=== PATIENT | female | born 1990 | race African-American/Black ===

== ENCOUNTER 2020-10-19 15:53 | Inpatient (IN) ==
[2020-10-19] MEDS ORDERED: cefTRIAXone 1,000 MG in SODIUM CHLORIDE 0.9% 100 ML IV STA (18:42)
[2020-10-19] MEDS ORDERED: DEXAMETHASONE 4 MG/1 ML VIAL IV STA (18:42)
[2020-10-19] MEDS ORDERED: cefTRIAXone 1,000 MG VIAL ONE (19:08)
[2020-10-19 19:12] LABS: Basophils % 0.2 % (0.0-0.8); Eosinophils % 0.1 % (0.00-10.9); Hematocrit 41.4 VOL% (35.7-47.0); Hemoglobin 13.8 GM/DL (12.0-16.0); Immature Granulocytes % 0.4 %; Immature Granulocytes Absolute 0.03 #; Lymphocytes # 2.5 10*3/uL (1.4-4.0); Lymphocytes % 29.7 % (21.3-54.2); Mean Corpuscular HGB Conc 33.3 GM/DL (32-36); Mean Corpuscular Volume 74.9 FL (87-102); Mean Platelet Volume 10.7 FL (9.6-12.0); Monocytes % 4.5 % (1.7-12.7); Neutrophils % 65.1 % (38.7-73.9); Platelet Count 220 T/CUMM (130-400); Red Blood Count 5.53 MC/CUMM (3.8-5.5); Red Cell Distribution Width 18.9 % (9.3-17.3); White Blood Count 8.4 T/CUMM (4-12)
[2020-10-19] MEDS ORDERED: hydrALAZINE 20 MG/1 ML VIAL IV STA (19:13)
[2020-10-19 19:35] LABS: Band Neutrophils 1 % (0-10); Hypochromasia Slight; Lymphocytes 29 % (20-55); Segmented Neutrophils 65 % (50-85); Target Cells Few; Total Cells Counted 100
[2020-10-19 19:36] LABS: Anisocytosis Slight; Platelet Estimate Adequate
[2020-10-19 19:41] LABS: Bilirubin,Total 0.4 MG/DL (0.2-1.0); Calcium 9.1 MG/DL (8.5-10.1); Ferritin 70.3 ng/ml (8-252); Osmolality,Calculated 270.8 MOS/KG (273-304); Total Protein 7.3 G/DL (6.4-8.3)
[2020-10-19] MEDS ORDERED: ACETAMINOPHEN 500 MG TABLET PO STA (20:56)
[2020-10-19] MEDS ORDERED: DOCUSATE SODIUM 100 MG CAPSULE PO PRN (21:52)
[2020-10-19] MEDS ORDERED: DEXTROSE 50% 25 GM/50 ML VIAL IV PRN (21:52)
[2020-10-19] MEDS ORDERED: ONDANSETRON 4 MG/2 ML VIAL IV PRN (21:52)
[2020-10-19] MEDS ORDERED: GLUCAGON 1 MG VIAL IM PRN (21:52)
[2020-10-19] MEDS ORDERED: hydrALAZINE 20 MG/1 ML VIAL IV PRN (21:52)
[2020-10-19] MEDS ORDERED: ENOXAPARIN 40 MG/0.4 ML SYRINGE SUBCUT SCH (22:00)
[2020-10-19] MEDS ORDERED: IBUPROFEN 600 MG TABLET PO PRN (22:42)
[2020-10-19] MEDS: AZITHROMYCIN INJ 500 MG in SODIUM CHLORIDE 0.9% 250 ML IV SCH (22:59)
[2020-10-19] MEDS: FAMOTIDINE 20 MG TABLET PO SCH (22:59)
[2020-10-19] MEDS: ALBUTEROL INHALER 18 GM INH SCH (22:59)
[2020-10-20] MEDS: ALBUTEROL INHALER 18 GM INH SCH ×6 (03:19→22:31)
[2020-10-20 06:49] LABS: Basophils % 0.3 % (0.0-0.8); Hematocrit 41.8 VOL% (35.7-47.0); Hemoglobin 13.5 GM/DL (12.0-16.0); Immature Granulocytes % 0.3 %; Immature Granulocytes Absolute 0.01 #; Lymphocytes # 1.3 10*3/uL (1.4-4.0); Lymphocytes % 36.4 % (21.3-54.2); Mean Corpuscular HGB Conc 32.3 GM/DL (32-36); Mean Corpuscular Volume 76.1 FL (87-102); Mean Platelet Volume 10.8 FL (9.6-12.0); Monocytes % 6.3 % (1.7-12.7); Neutrophils % 56.7 % (38.7-73.9); Platelet Count 188 T/CUMM (130-400); Red Blood Count 5.49 MC/CUMM (3.8-5.5); Red Cell Distribution Width 18.1 % (9.3-17.3); White Blood Count 3.5 T/CUMM (4-12)
[2020-10-20 07:11] LABS: Calcium 8.7 MG/DL (8.5-10.1); Osmolality,Calculated 278.5 MOS/KG (273-304)
[2020-10-20 07:18] LABS: Band Neutrophils 2 % (0-10); Hypochromasia 1+; Lymphocytes 34 % (20-55); Microcytosis Slight; Platelet Estimate Adequate; Segmented Neutrophils 59 % (50-85); Total Cells Counted 100
[2020-10-20] MEDS: FAMOTIDINE 20 MG TABLET PO SCH ×2 (08:11→20:30)
[2020-10-20] MEDS: DEXAMETHASONE 10 MG/1 ML VIAL IV SCH (08:11)
[2020-10-20] MEDS: amLODIPine 10 MG TABLET PO SCH (08:11)
[2020-10-20] MEDS: MONTELUKAST 10 MG TABLET PO SCH (08:12)
[2020-10-20] MEDS: ASCORBIC ACID 500 MG TABLET PO SCH (08:12)
[2020-10-20] MEDS: CETIRIZINE 10 MG TABLET PO SCH (08:12)
[2020-10-20] MEDS: CHOLECALCIFEROL 1,000 UNIT TABLET PO SCH (08:12)
[2020-10-20] MEDS: ZINC SULFATE 220 MG CAPSULE PO SCH (08:54)
[2020-10-20] MEDS: HEPARIN 5,000 UNIT/1 ML VIAL SUBCUT SCH ×3 (09:39→20:30)
[2020-10-20] MEDS: THIAMINE 100 MG TABLET PO SCH (09:39)
[2020-10-20] MEDS ORDERED: ZALEPLON 5 MG CAPSULE PO PRN (16:38)
[2020-10-20] MEDS ORDERED: REMDESIVIR 200 MG in SODIUM CHLORIDE 0.9% 210 ML IV ONE (17:00)
[2020-10-20] MEDS: cefTRIAXone 2,000 MG in SODIUM CHLORIDE 0.9% 100 ML IV SCH (17:50)
[2020-10-20] MEDS: AZITHROMYCIN INJ 500 MG in SODIUM CHLORIDE 0.9% 250 ML IV SCH (22:31)
[2020-10-21] MEDS: HEPARIN 5,000 UNIT/1 ML VIAL SUBCUT SCH ×4 (03:29→21:01)
[2020-10-21] MEDS: ALBUTEROL INHALER 18 GM INH SCH ×6 (03:30→23:30)
[2020-10-21 06:17] LABS: Basophils % 0.1 % (0.0-0.8); Hematocrit 39.7 VOL% (35.7-47.0); Hemoglobin 13.3 GM/DL (12.0-16.0); Immature Granulocytes % 0.5 %; Immature Granulocytes Absolute 0.06 #; Lymphocytes # 2.1 10*3/uL (1.4-4.0); Lymphocytes % 16.7 % (21.3-54.2); Mean Corpuscular HGB Conc 33.5 GM/DL (32-36); Mean Corpuscular Volume 74.8 FL (87-102); Mean Platelet Volume 10.8 FL (9.6-12.0); Monocytes % 6.4 % (1.7-12.7); Neutrophils % 76.3 % (38.7-73.9); Platelet Count 223 T/CUMM (130-400); Red Blood Count 5.31 MC/CUMM (3.8-5.5); Red Cell Distribution Width 18.6 % (9.3-17.3); White Blood Count 12.7 T/CUMM (4-12)
[2020-10-21 06:57] LABS: Alanine Aminotransferase 19 U/L (13-56); Albumin 2.7 G/DL (3.4-5.0); Alkaline Phosphatase 28 U/L (45-117); Aspartate Amino Transferase 15 U/L (0-37); Bilirubin,Direct < 0.050 MG/DL (0.0-0.20); Bilirubin,Indirect 0.9 MG/DL (0.0-1.0); Blood Urea Nitrogen 11 MG/DL (7-18); Estimated Glom Filtration Rate 158 ML/MIN; Ferritin 81.6 ng/ml (8-252); Glucose 112 MG/DL (74-106); Osmolality,Calculated 276.5 MOS/KG (273-304)
[2020-10-21 07:03] LABS: Hypochromasia Slight; Lymphocytes 11 % (20-55); Platelet Estimate Adequate; Segmented Neutrophils 87 % (50-85); Total Cells Counted 100
[2020-10-21 07:04] LABS: Microcytosis Slight
[2020-10-21] MEDS: THIAMINE 100 MG TABLET PO SCH (09:47)
[2020-10-21] MEDS: amLODIPine 10 MG TABLET PO SCH (09:47)
[2020-10-21] MEDS: CETIRIZINE 10 MG TABLET PO SCH (09:47)
[2020-10-21] MEDS: ASCORBIC ACID 500 MG TABLET PO SCH (09:47)
[2020-10-21] MEDS: CHOLECALCIFEROL 1,000 UNIT TABLET PO SCH (09:47)
[2020-10-21] MEDS: MONTELUKAST 10 MG TABLET PO SCH (09:48)
[2020-10-21] MEDS: FAMOTIDINE 20 MG TABLET PO SCH ×2 (09:48→21:02)
[2020-10-21] MEDS: DEXAMETHASONE 10 MG/1 ML VIAL IV SCH (09:48)
[2020-10-21] MEDS: REMDESIVIR 100 MG in SODIUM CHLORIDE 0.9% 230 ML IV SCH (13:50)
[2020-10-22] MEDS: AZITHROMYCIN INJ 500 MG in SODIUM CHLORIDE 0.9% 250 ML IV SCH (02:53)
[2020-10-22] MEDS: ALBUTEROL INHALER 18 GM INH SCH ×6 (03:54→23:35)
[2020-10-22] MEDS: HEPARIN 5,000 UNIT/1 ML VIAL SUBCUT SCH ×4 (03:54→21:50)
[2020-10-22 05:11] LABS: Albumin 2.9 G/DL (3.4-5.0); Bilirubin,Total 0.4 MG/DL (0.2-1.0); Calcium 8.7 MG/DL (8.5-10.1); Total Protein 7.3 G/DL (6.4-8.3)
[2020-10-22 05:12] LABS: Basophils % 0.2 % (0.0-0.8); Hematocrit 39.9 VOL% (35.7-47.0); Hemoglobin 13.2 GM/DL (12.0-16.0); Immature Granulocytes % 0.9 %; Immature Granulocytes Absolute 0.11 #; Lymphocytes # 2.4 10*3/uL (1.4-4.0); Lymphocytes % 19.2 % (21.3-54.2); Mean Corpuscular HGB Conc 33.1 GM/DL (32-36); Mean Corpuscular Volume 74.6 FL (87-102); Mean Platelet Volume 11.3 FL (9.6-12.0); Monocytes % 5.1 % (1.7-12.7); NRBC # 0.02 10*3/uL; Neutrophils % 74.6 % (38.7-73.9); Platelet Count 242 T/CUMM (130-400); Red Blood Count 5.35 MC/CUMM (3.8-5.5); Red Cell Distribution Width 18.4 % (9.3-17.3); White Blood Count 12.6 T/CUMM (4-12)
[2020-10-22 06:06] LABS: Anisocytosis 1+; Platelet Estimate Normal
[2020-10-22 06:07] LABS: Target Cells Few
[2020-10-22] MEDS: cefTRIAXone 2,000 MG in SODIUM CHLORIDE 0.9% 100 ML IV SCH ×3 (07:26→17:07)
[2020-10-22] MEDS: FAMOTIDINE 20 MG TABLET PO SCH ×2 (08:49→21:50)
[2020-10-22] MEDS: amLODIPine 10 MG TABLET PO SCH (08:50)
[2020-10-22] MEDS: ZINC SULFATE 220 MG CAPSULE PO SCH (08:50)
[2020-10-22] MEDS: MONTELUKAST 10 MG TABLET PO SCH (08:50)
[2020-10-22] MEDS: ASCORBIC ACID 500 MG TABLET PO SCH (08:52)
[2020-10-22] MEDS: CETIRIZINE 10 MG TABLET PO SCH (08:53)
[2020-10-22] MEDS: DEXAMETHASONE 10 MG/1 ML VIAL IV SCH (08:53)
[2020-10-22] MEDS: THIAMINE 100 MG TABLET PO SCH (08:53)
[2020-10-22] MEDS: CHOLECALCIFEROL 1,000 UNIT TABLET PO SCH (08:53)
[2020-10-22] MEDS: REMDESIVIR 100 MG in SODIUM CHLORIDE 0.9% 230 ML IV SCH (10:49)
[2020-10-22] MEDS: IBUPROFEN 400 MG TABLET PO PRN (10:49)
[2020-10-23] MEDS: ACETAMINOPHEN 325 MG TABLET PO PRN (02:45)
[2020-10-23] MEDS: HEPARIN 5,000 UNIT/1 ML VIAL SUBCUT SCH ×4 (02:45→20:32)
[2020-10-23] MEDS: ALBUTEROL INHALER 18 GM INH SCH ×6 (02:45→23:28)
[2020-10-23] MEDS: AZITHROMYCIN INJ 500 MG in SODIUM CHLORIDE 0.9% 250 ML IV SCH ×2 (03:03→21:58)
[2020-10-23 07:08] LABS: Basophils # 0.1 10*3/uL (0.0-0.2); Basophils % 0.3 % (0.0-0.8); Hematocrit 40.8 VOL% (35.7-47.0); Hemoglobin 13.2 GM/DL (12.0-16.0); Immature Granulocytes Absolute 0.33 #; Lymphocytes # 3.7 10*3/uL (1.4-4.0); Lymphocytes % 21.9 % (21.3-54.2); Mean Corpuscular HGB Conc 32.4 GM/DL (32-36); Mean Corpuscular Volume 75.1 FL (87-102); Mean Platelet Volume 11.5 FL (9.6-12.0); Monocytes % 8.8 % (1.7-12.7); NRBC # 0.02 10*3/uL; Platelet Count 253 T/CUMM (130-400); Red Blood Count 5.43 MC/CUMM (3.8-5.5); Red Cell Distribution Width 18.8 % (9.3-17.3); White Blood Count 16.8 T/CUMM (4-12)
[2020-10-23 07:28] LABS: Calcium 8.9 MG/DL (8.5-10.1); Osmolality,Calculated 279.5 MOS/KG (273-304)
[2020-10-23 08:56] LABS: Anisocytosis 1+; Band Neutrophils 2 % (0-10); Lymphocytes 25 % (20-55); Metamyelocytes 2 %; Myelocytes 1 %; Platelet Estimate Normal; Segmented Neutrophils 61 % (50-85); Smudge Cells 1+; Target Cells Few; Total Cells Counted 100
[2020-10-23] MEDS: CHOLECALCIFEROL 1,000 UNIT TABLET PO SCH (09:22)
[2020-10-23] MEDS: amLODIPine 10 MG TABLET PO SCH (09:23)
[2020-10-23] MEDS: MONTELUKAST 10 MG TABLET PO SCH (09:23)
[2020-10-23] MEDS: FAMOTIDINE 20 MG TABLET PO SCH ×2 (09:23→20:32)
[2020-10-23] MEDS: ASCORBIC ACID 500 MG TABLET PO SCH (09:23)
[2020-10-23] MEDS: CETIRIZINE 10 MG TABLET PO SCH (09:24)
[2020-10-23] MEDS: IBUPROFEN 400 MG TABLET PO PRN (09:24)
[2020-10-23] MEDS: THIAMINE 100 MG TABLET PO SCH (09:24)
[2020-10-23] MEDS: DEXAMETHASONE 10 MG/1 ML VIAL IV SCH (09:25)
[2020-10-23] MEDS: REMDESIVIR 100 MG in SODIUM CHLORIDE 0.9% 230 ML IV SCH (09:27)
[2020-10-23] MEDS: cefTRIAXone 2,000 MG in SODIUM CHLORIDE 0.9% 100 ML IV SCH (17:33)
[2020-10-24] MEDS: ACETAMINOPHEN 325 MG TABLET PO PRN (01:40)
[2020-10-24] MEDS: ALBUTEROL INHALER 18 GM INH SCH ×6 (03:50→22:56)
[2020-10-24] MEDS: HEPARIN 5,000 UNIT/1 ML VIAL SUBCUT SCH ×4 (03:50→21:50)
[2020-10-24 06:28] LABS: Basophils # 0.1 10*3/uL (0.0-0.2); Basophils % 0.4 % (0.0-0.8); Hematocrit 39.7 VOL% (35.7-47.0); Hemoglobin 13.1 GM/DL (12.0-16.0); Immature Granulocytes Absolute 0.57 #; Lymphocytes # 3.9 10*3/uL (1.4-4.0); Lymphocytes % 20.5 % (21.3-54.2); Mean Corpuscular Volume 74.6 FL (87-102); Mean Platelet Volume 10.8 FL (9.6-12.0); Monocytes % 6.9 % (1.7-12.7); Neutrophils % 69.2 % (38.7-73.9); Platelet Count 263 T/CUMM (130-400); Red Blood Count 5.32 MC/CUMM (3.8-5.5); Red Cell Distribution Width 18.6 % (9.3-17.3); White Blood Count 18.9 T/CUMM (4-12)
[2020-10-24 06:51] LABS: Alanine Aminotransferase 21 U/L (13-56); Albumin 2.8 G/DL (3.4-5.0); Alkaline Phosphatase 34 U/L (45-117); Aspartate Amino Transferase 11 U/L (0-37); Bilirubin,Total < 0.39 MG/DL (0.2-1.0); Blood Urea Nitrogen 10 MG/DL (7-18); Calcium 8.6 MG/DL (8.5-10.1); Estimated Glom Filtration Rate 137 ML/MIN; Glucose 245 MG/DL (74-106); Total Protein 6.8 G/DL (6.4-8.3)
[2020-10-24 07:28] LABS: Anisocytosis 1+; Band Neutrophils 1 % (0-10); Lymphocytes 27 % (20-55); Platelet Estimate Normal; Segmented Neutrophils 64 % (50-85); Smudge Cells 1+; Total Cells Counted 100
[2020-10-24 07:29] LABS: Target Cells Few
[2020-10-24] MEDS: FAMOTIDINE 20 MG TABLET PO SCH ×2 (08:36→21:50)
[2020-10-24] MEDS: ASCORBIC ACID 500 MG TABLET PO SCH (08:36)
[2020-10-24] MEDS: MONTELUKAST 10 MG TABLET PO SCH (08:36)
[2020-10-24] MEDS: THIAMINE 100 MG TABLET PO SCH (08:37)
[2020-10-24] MEDS: CHOLECALCIFEROL 1,000 UNIT TABLET PO SCH (08:37)
[2020-10-24] MEDS: CETIRIZINE 10 MG TABLET PO SCH (08:37)
[2020-10-24] MEDS: amLODIPine 10 MG TABLET PO SCH (08:37)
[2020-10-24] MEDS: REMDESIVIR 100 MG in SODIUM CHLORIDE 0.9% 230 ML IV SCH (08:38)
[2020-10-24] MEDS: ZINC SULFATE 220 MG CAPSULE PO SCH (09:12)
[2020-10-24] MEDS: DEXAMETHASONE 10 MG/1 ML VIAL IV SCH (09:13)
[2020-10-24] MEDS: IBUPROFEN 400 MG TABLET PO PRN ×2 (09:26→19:55)
[2020-10-24] MEDS: cefTRIAXone 2,000 MG in SODIUM CHLORIDE 0.9% 100 ML IV SCH (18:32)
[2020-10-24] MEDS: AZITHROMYCIN INJ 500 MG in SODIUM CHLORIDE 0.9% 250 ML IV SCH (21:50)
[2020-10-25] MEDS: HEPARIN 5,000 UNIT/1 ML VIAL SUBCUT SCH ×2 (03:24→08:26)
[2020-10-25] MEDS: ALBUTEROL INHALER 18 GM INH SCH ×3 (03:30→11:15)
[2020-10-25 06:24] LABS: Basophils # 0.1 10*3/uL (0.0-0.2); Basophils % 0.5 % (0.0-0.8); Hemoglobin 12.9 GM/DL (12.0-16.0); Immature Granulocytes % 3.6 %; Immature Granulocytes Absolute 0.75 #; Lymphocytes # 3.5 10*3/uL (1.4-4.0); Lymphocytes % 16.9 % (21.3-54.2); Mean Corpuscular HGB Conc 33.9 GM/DL (32-36); Mean Corpuscular Volume 74.5 FL (87-102); Mean Platelet Volume 11.5 FL (9.6-12.0); Platelet Count 298 T/CUMM (130-400); Red Cell Distribution Width 18.6 % (9.3-17.3)
[2020-10-25] MEDS: IBUPROFEN 400 MG TABLET PO PRN (06:45)
[2020-10-25 06:47] LABS: Calcium 8.8 MG/DL (8.5-10.1); Osmolality,Calculated 282.8 MOS/KG (273-304)
[2020-10-25 07:01] LABS: Lymphocytes 20 % (20-55); Platelet Estimate Adequate; Segmented Neutrophils 72 % (50-85); Total Cells Counted 100
[2020-10-25 07:02] LABS: Hypochromasia 1+
[2020-10-25] MEDS: CHOLECALCIFEROL 1,000 UNIT TABLET PO SCH (08:25)
[2020-10-25] MEDS: CETIRIZINE 10 MG TABLET PO SCH (08:25)
[2020-10-25] MEDS: ASCORBIC ACID 500 MG TABLET PO SCH (08:26)
[2020-10-25] MEDS: DEXAMETHASONE 10 MG/1 ML VIAL IV SCH (08:26)
[2020-10-25] MEDS: MONTELUKAST 10 MG TABLET PO SCH (08:26)
[2020-10-25] MEDS: THIAMINE 100 MG TABLET PO SCH (08:26)
[2020-10-25] MEDS: amLODIPine 10 MG TABLET PO SCH (08:26)
[2020-10-25] MEDS: FAMOTIDINE 20 MG TABLET PO SCH (08:27)
[2020-10-25 11:55] VITALS: BP 178/82
== END 2020-10-25 11:52 | disposition home or self-care (01) | DRG 177 ==
LOC: N.ED 15:53 → N.2E 15:53 → N.EDINP 15:53 → N.2E 21:48 → SUATTDRO 21:55
PROVIDERS: ADMIT Internal Medicine; ATTEND Internal Medicine